=== PATIENT | female | born 1950 | race Caucasian/White ===

== ENCOUNTER 2023-12-22 08:15 | Day surgery (SDC) | payer MEDICARE, BC ==
[2023-12-22] MEDS: Lactated Ringers 1,000 ML IV SCH (08:32)
== END 2023-12-22 10:10 | disposition home or self-care (01) ==
LOC: CC.SDS 08:15
PROVIDERS: ATTEND Family Medicine
DX: Z12.11 Encounter for screening for malignant neoplasm of colon (principal); K62.1 Rectal polyp; K57.30 Diverticulosis of large intestine without perforation or abscess without bleeding; K64.4 Residual hemorrhoidal skin tags; Z86.010 Personal history of colon polyps; I25.10 Atherosclerotic heart disease of native coronary artery without angina pectoris; Z87.891 Personal history of nicotine dependence
CPT/HCPCS: 00811; 88305; 99100; J7120